=== PATIENT | male | born 1980 | race Caucasian/White ===

== ENCOUNTER 2024-04-15 17:45 | Emergency (ER) | payer BC ==
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
[2024-04-15] MEDS: HYDROmorphone 1 MG/ML 1 ML SYRINGE IVP STA ×3 (18:27→21:34)
[2024-04-15] MEDS: SODIUM CHLORIDE 0.9% 1,000 ML IV ONE (18:30)
[2024-04-15] MEDS: DIPH,PERTUS(ACELL)TETVAC-LF 0.5 ML VIAL IM ONE (18:42)
[2024-04-15] MEDS: ceFAZolin 1,000 MG VIAL (IM USE) IM STA (18:46)
[2024-04-15 18:57] VITALS: TEMP 98
--- NOTE | 2024-04-15 19:02 | XR ---
EXAMINATION TYPE: XR hand complete RT DATE OF EXAM: 04/15/2024 6:55 PM CLINICAL INDICATION:Male, 44 years old with history of finger injuries; [facility] COMPARISON: None TECHNIQUE: XR hand complete RT Frontal, lateral and oblique views were obtained. FINDINGS/IMPRESSION: 1. Soft tissue injuries to the second, third and fourth digits with open wounds down to the bone on the third and fourth digits. 2. Fracture of the third and fourth digits distal phalanx without significant displacement.
[2024-04-15] MEDS: KETOROLAC 15 MG/ML 1 ML VIAL IVP STA (19:21)
[2024-04-15] MEDS: ACETAMINOPHEN IV (For NPO) 1,000 MG in EMPTY BAG 1 BAG IVPB STA (19:38)
[2024-04-15] MEDS: LIDOCAINE 2% INJ 20 MG/ML (10 ML MDV) MISCELLANE ONE (21:26)
[2024-04-15 21:46] VITALS: BP 155/97; PULSE 78; RESP 20
== END 2024-04-15 22:01 | disposition other institution (70) ==
LOC: EC 17:45
DX: S62.632B Displaced fracture of distal phalanx of right middle finger, initial encounter for open fracture (principal); Z23 Encounter for immunization; W26.8XXA Contact with other sharp object(s), not elsewhere classified, initial encounter
CPT/HCPCS: 99284; 96365; 96367; 96375 ×2; 96376 ×2; 90471; 29125; 73130; 90715; J2001; J0690; J1170; J0131; J1885